=== PATIENT | female | born 1990 | race African-American/Black ===

== ENCOUNTER 2021-02-21 06:21 | Day surgery (SDC) | payer MEDICAID ==
[~2021-02-21] VITALS: Ht 165.1 cm; Wt 93.4 kg
[~2021-02-21 06:21] MED LIST: TRAZODONE HCL50 MG PO; [UNRECOGNIZED DRUG - OTHER] PO
[2021-02-21 06:38] LABS: BASOPHILS 0.5 % (0-2); EOSINOPHILS 1.2 % (0-7); HEMATOCRIT 38.2 % (36.0-48.0); HEMOGLOBIN 12.1 g/dL (12-16); LYMPHOCYTES 21.2 % (15-50); MCH 29.6 pg (26.0-34.0); MCHC 31.8 g/dL (31.0-37.0); MCV 93.1 fL (80.0-100.0); MEAN PLATELET VOLUME 8.4 fL (7.4-10.4); MONOCYTES 7.6 % (2-11); NEUTROPHILS 69.5 % (40-80); PLATELET COUNT 275 10x3/uL (130-400); WBC 14.9 10x3/uL (4.8-10.8)
[2021-02-21 07:04] LABS: HCG SERUM NEGATIVE (NEGATIVE)
[2021-02-21 07:06] LABS: CALC OSMOLALITY 282 mosm/kg (275-300); CALCIUM 8.4 mg/dL (8.5-10.1); CARBON DIOXIDE 24.9 mmol/L (21.0-32.0); CHLORIDE - SERUM 106 mmol/L (98-107); CREATININE - SERUM 0.9 mg/dL (0.6-1.3); GLUCOSE 92 mg/dL (74-106); POTASSIUM - SERUM 3.9 mmol/L (3.5-5.1); SODIUM 141 mmol/L (136-145); UREA NITROGEN 18 mg/dL (7-18); eGFR NON AFRICAN AMERICAN 79 mL/min (90-120)
[2021-02-21 08:12] VITALS: BP 153/68; Ht 165.1 cm; Wt 93.4 kg
[2021-02-21] MEDS ORDERED: HYDROCODON-ACE1 EA10 PO (09:46)
--- NOTE | 2021-02-21 10:02 | NUR ---
OPA OUT AT THIS TIME
--- NOTE | 2021-02-21 11:40 | NUR ---
IV D/C'D WITH CANNULA INTACT, PRESSURE HELD AND DRSG PLACED. DISCHARGE INTRUCTIONS GIVEN AND PT VERBALIZED AN UNDERSTANDING.STATES PAIN IS TOLERABLE.
--- NOTE | 2021-02-25 13:46 | OP ---
PATIENT NAME: KRISTYN MURPHY MEDICAL RECORD: [id number] :89 LOCATION:D.OPS ADMISSION DATE: SURGEON: KULDIP CLARK MD DATE OF OPERATION: 02/21/2021 PREOPERATIVE DIAGNOSIS: Right buttock cyst. POSTOPERATIVE DIAGNOSIS: Right buttock cyst. PROCEDURE: Drainage of right buttock cyst. SURGEON: Kuldip Clark MD DESCRIPTION OF PROCEDURE: The patient was placed in the left lateral decubitus position and the right buttock region was prepped and draped in sterile fashion. Using ultrasound guidance, I could see that there was a large fluid-filled pocket about 4 cm deep underneath the subcutaneous fatty tissue. A transverse incision was made about 3 cm in length. Using electrocautery and blunt dissection, we eventually encountered this fluid pocket. The fluid that was obtained was nonpurulent and appeared to be most consistent with old bloody fluid. We went ahead and cleared out the pocket and could feel that the edges of the pocket were quite firm. Using a curette, I was able to penetrate a lot of the wall and take down some of this firm tissue on the edges. As we did this, the pocket collapsed nicely. We eventually washed out the wound bed with hydrogen peroxide. A 15 round Uri drain was then inserted through the pocket and brought out laterally on the right hip. This was sutured into place with 2-0 nylon. We then closed the subcutaneous tissues with interrupted 3-0 Vicryl and the skin was closed with running subcutaneous 5-0 Monocryl. A 10 mL of 0.25% Marcaine with epinephrine was infused into the surrounding tissues and the wound was dressed appropriately. COMPLICATIONS: None. CONDITION: Stable. ANESTHESIA: General endotracheal and local. BLOOD LOSS: Minimal. TRANSINT:[id number] Voice Confirmation ID: [id number] DOCUMENT ID: [id number] KULDIP CLARK MD at 1346 CC: [id number] DICTATION DATE: 02/21/21 0948 WATER PURIFICATION CHEMIST: 02/21/21 1035 [facility] 02/21/21 [facility] [address] [place] [address]
== END 2021-02-21 11:30 | disposition home or self-care (01) ==
LOC: D.OPS 06:21
PROVIDERS: Anesthesiology; ATTEND Surgery
DX: L02.31 Cutaneous abscess of buttock (principal)